=== PATIENT | female | born 1960 | race African-American/Black ===

== ENCOUNTER 2018-09-10 13:52 | Emergency (ER) | payer SELFPAY ==
[~2018-09-10] VITALS: Ht 165.1 cm; Wt 96.0 kg
[2018-09-10] MEDS ORDERED: KETOROLAC 15MG/ML VIAL IM ONE (14:15)
[2018-09-10] MEDS ORDERED: HYDROCODONE/ACETAMINOPHEN 5/325MG TABLET PO ONE (15:00)
[2018-09-10 15:14] VITALS: BP 152/88
== END 2018-09-10 16:13 | disposition home or self-care (01) ==
LOC: ER 13:52
DX: S16.1XXA Strain of muscle, fascia and tendon at neck level, initial encounter (principal); M54.5 Low back pain; E78.00 Pure hypercholesterolemia, unspecified; I10 Essential (primary) hypertension; F17.200 Nicotine dependence, unspecified, uncomplicated; V49.88XA Car occupant (driver) (passenger) injured in other specified transport accidents, initial encounter; Y93.89 Activity, other specified; Y92.89 Other specified places as the place of occurrence of the external cause; Y99.8 Other external cause status
CPT/HCPCS: 72100; 72125; 96372; 99284; J1885